=== PATIENT | female | born 1990 | race Caucasian/White ===

== ENCOUNTER 2017-10-19 16:26 | Emergency (ER) | payer BC, OTHER ==
[2017-10-19 16:33] VITALS: BP 115/76; PULSE 82; TEMP 97.9; BMI 31.5
--- NOTE | 2017-10-19 16:46 | PDOC ---
Rapid Medical Evaluation Chief Complaint: Injury Time Seen by Provider: 10/19/17 16:41 Medical Evaluation: Allergies Allergy/AdvReac Type Severity Reaction Status Date / Time No Known Allergies Allergy Verified 10/19/17 16:33 Vital Signs Temp Pulse Resp BP Pulse Ox 97.9 F 82 18 115/76 97 10/19/17 16:29 10/19/17 16:29 10/19/17 16:29 10/19/17 16:29 10/19/17 16:29 10/19/17 16:41 I have performed a brief in-person evaluation of this patient. The patient presents with a chief complaint of: finger injury Pertinent physical exam findings: swollen right ring finger, subungual hematoma I have ordered the following: xray, right ring finger. pt will sign consent The patient will proceed to the ED for further evaluation. Discharge Disposition - Diagnosis Finger injury Qualifiers: Encounter type: initial encounter Laterality: right Qualified Code(s): S69.91XA - Unspecified injury of right wrist, hand and finger(s), initial encounter - Referrals - Patient Instructions - Post Discharge Activity
[2017-10-19] MEDS ORDERED: IBUPROFEN 400 MG TABLET (FP) PO ONE ×2 (17:45→17:47)
--- NOTE | 2017-10-19 18:17 | PDOC ---
History of Present Illness - General Chief Complaint: Injury Stated Complaint: INFECTION Time Seen by Provider: 10/19/17 16:41 History Source: Patient Exam Limitations: No Limitations - History of Present Illness Initial Comments: 10/19/17 18:20 Chief complaint: Right fourth finger injury to nail bed History of present illness:Patient is a 37-year-old female with a history of migraines here today complaining of tingling sensation in the left hand that radiates towards her left elbow worse at night. Patient denies any injury. Patient reports that this is been occurring for 5 days. 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 Patient holds her and her phone at times with her left hand. Patient did denies any decreased strength of her left hand or arm walter any coolness or redness or swelling of her hand or arm. Patient denies that area is painful. Occurred: reports: other (2 days ago ) Severity: reports: severe (rt. ring finger) Pain Location: reports: upper extremity (rt ring finger ) Method of Injury: Yes: direct blow (by a metal door) Modifying Factors: improves with: None Loss of Consciousness: no loss of consciousness Associated Symptoms (Fall): denies symptoms Past History - Past Medical History Allergies/Adverse Reactions: Allergies Allergy/AdvReac Type Severity Reaction Status Date / Time No Known Allergies Allergy Verified 10/19/17 16:33 Home Medications: Ambulatory Orders NK [No Known Home Medication] 08/21/15 COPD: No Other medical history: denies - Surgical History Abdominal Surgery: Yes Cholecystectomy: Yes - Immunization History Immunization Up to Date: No - Suicide/Smoking/Psychosocial Hx Smoking History: Never smoked Hx Alcohol Use: No Drug/Substance Use Hx: No Substance Use Type: None Review of Systems - Review of Systems Able to Perform ROS?: Yes Constitutional: No: Symptoms Reported HEENTM: No: Symptoms Reported Respiratory: No: Symptoms reported Cardiac (ROS): No: Symptoms Reported ABD/GI: No: Symptoms Reported : No: Symptoms Reported Musculoskeletal: No: Symptoms Reported Integumentary: Yes: Other (bleeding under rt. ring fingernail) Neurological: No: Symptoms reported *Physical Exam - Vital Signs Last Vital Signs Temp Pulse Resp BP Pulse Ox 97.9 F 82 18 115/76 97 10/19/17 16:29 10/19/17 16:29 10/19/17 16:29 10/19/17 16:29 10/19/17 16:29 - Physical Exam General Appearance: Yes: Appropriately Dressed Comments:: 10/19/17 18:12 radial pulse 4 + rt Extremity: positive: Normal Capillary Refill, Normal Range of Motion (RT. DIP, PIP AND MCP JT RT. 4TH ), Tender (DISTAL RT. 4TH FINGER ) Integumentary: positive: Erythema (around rt. nailbed slight), Other (rt. nailbed 100% blood noted ring finger ) Neurologic: positive: Normal Response, Respond to painful stimul (rt. 4th finger ). negative: Numbness, Sensory Deficit (rt. ring finger) Procedures - Consent Consent obtained: From Patient - Nail Trephination Method of Drainage: nail cauterized Sterile Dressing Applied: No (bandaid) Progress: 10/19/17 18:15 cleansed area with betadine digital block performed with good effect lidocaine 1 % 5 ml able to express moderate amount of blood ED Treatment Course - Medications Given in the ED: ED Medications Discontinued Medications Generic Name Dose Route Start Last Admin Trade Name Taye PRN Reason Stop Dose Admin Ibuprofen 400 mg 10/19/17 17:45 10/19/17 17:50 Motrin - PO 10/19/17 17:46 400 mg ONCE ONE Administration Medical Decision Making - Medical Decision Making 10/19/17 18:21 Patient is a 37-year-old female with a history of migraines here today complaining of tingling sensation in the left hand that radiates towards her left elbow worse at night. Patient denies any injury. Patient reports that this is been occurring for 5 days. 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 Patient holds her and her phone at times with her left hand. Patient did denies any decreased strength of her left hand or arm walter any coolness or redness or swelling of her hand or arm. Patient denies that area is painful. rt. 4th finger r/o fracture rt. 4th finger subungal hematoma PLAN: urine hcg negative' ibuprofen 400 mg po now digital block rt. 4th finger with lidocaine 1 % 5 ml with good effect Fourth nail bed cauterized moderate amount of blood expressed xray rt. 4tn finger negative for fracture' 10/19/17 18:23 10/19/17 18:25 *DC/Admit/Observation/Transfer Diagnosis at time of Disposition: Finger injury Qualifiers: Encounter type: initial encounter Laterality: right Qualified Code(s): S69.91XA - Unspecified injury of right wrist, hand and finger(s), initial encounter Subungual hematoma of finger of right hand Qualifiers: Encounter type: initial encounter Qualified Code(s): S60.10XA - Contusion of unspecified finger with damage to nail, initial encounter - Discharge Dispostion Disposition: HOME Condition at time of disposition: Stable - Referrals - Patient Instructions Additional Instructions: cleansed fingernail with a bacterial soap and water twice daily cover with Band- Aid when out a house let air out at night return to emergency room if any increased redness around nailbed or any discharge from area take ibuProfen as needed as directed by subcontract manager for pain Follow-up with your primary care provider within the next few days Patient voiced understanding of discharge instructions and all questions were answered And thank you for choosing [facility] emergency room for your medical needs today - Post Discharge Activity
== END 2017-10-19 18:26 | disposition home or self-care (01) ==
LOC: JERFT 16:26
PROC: 0H9QXZZ Drainage of Finger Nail, External Approach (ICD-10-PCS; principal; 2017-10-19)
DX: S60.141A Contusion of right ring finger with damage to nail, initial encounter (principal); W23.0XXA Caught, crushed, jammed, or pinched between moving objects, initial encounter; Y93.89 Activity, other specified; Y92.018 Other place in single-family (private) house as the place of occurrence of the external cause
CPT/HCPCS: 73140-TC-RT; 99281-25

== ENCOUNTER 2018-11-04 17:39 | Emergency (ER) | payer BC, OTHER ==
[2018-11-04 18:45] VITALS: BMI 32.6
--- NOTE | 2018-11-04 20:19 | PDOC ---
History of Present Illness - General Chief Complaint: Pain Stated Complaint: NAUSEA/VOMITING Time Seen by Provider: 11/04/18 20:08 History Source: Patient - History of Present Illness Initial Comments: 11/04/18 22:15 27 year old female with nausea, vomiting and diarrhea x 1 day with chills after eating sushi last night. reports feeling tingling in the fingers and weakness. denies abdominal pain, urinary symptoms, fever, headache, chest pain. 1 Past History - Past Medical History Allergies/Adverse Reactions: Allergies Allergy/AdvReac Type Severity Reaction Status Date / Time No Known Allergies Allergy Verified 10/19/17 16:33 Home Medications: Ambulatory Orders Polyethylene Glycol 3350 [Miralax (For Daily Use) -] 17 gm PO DAILY 11/04/18 Anemia: No Asthma: No Cancer: No Cardiac Disorders: No CVA: No COPD: No CHF: No DVT: No Dementia: No Diabetes: No Dialysis: No GI Disorders: No Disorders: No HTN: No Hypercholesterolemia: No Kidney Stones: No Liver Disease: No Psychiatric Problems: No Seizures: No Thyroid Disease: No Lung CA: No - Surgical History Abdominal Surgery: Yes Appendectomy: No Cardiac Surgery: No Cholecystectomy: Yes Gastric Stapling: No GI Surgery: No Lung Surgery: No Neurologic Surgery: No - Immunization History Immunization Up to Date: No - Suicide/Smoking/Psychosocial Hx Smoking History: Never smoked Hx Alcohol Use: No Drug/Substance Use Hx: No Substance Use Type: None *Physical Exam - Vital Signs Last Vital Signs Temp Pulse Resp BP Pulse Ox 99 F 113 H 20 105/69 97 11/04/18 18:39 11/04/18 18:39 11/04/18 18:39 11/04/18 18:39 11/04/18 18:39 - Physical Exam General Appearance: Yes: Appropriately Dressed Respiratory/Chest: positive: Lungs Clear, Normal Breath Sounds Gastrointestinal/Abdominal: positive: Normal Bowel Sounds, Soft. negative: Tender Musculoskeletal: negative: CVA Tenderness Extremity: positive: Normal Capillary Refill, Normal Inspection, Normal Range of Motion Integumentary: positive: Normal Color, Dry, Warm Neurologic: positive: Fully Oriented, Alert, Normal Mood/Affect Moderate Sedation - Procedure Monitoring Vital Signs: Procedure Monitoring Vital Signs Temperature 99 F 11/04/18 18:39 Pulse Rate 113 H 11/04/18 18:39 Respiratory Rate 20 11/04/18 18:39 Blood Pressure 105/69 11/04/18 18:39 O2 Sat by Pulse Oximetry (%) 97 11/04/18 18:39 ED Treatment Course - LABORATORY CBC & Chemistry Diagram: 11/04/18 20:41 11/04/18 20:41 Medical Decision Making - Medical Decision Making Gastroenteritis P: labs IVF UA nitrite positive trace leuks. no urinary symptoms. likely contaminant will not treat. 11/04/18 23:05 tolerating PO water and crackers 11/08/18 21:39 *DC/Admit/Observation/Transfer Diagnosis at time of Disposition: Gastroenteritis - Discharge Dispostion Disposition: HOME Condition at time of disposition: Improved - Referrals - Patient Instructions Printed Discharge Instructions: Viral Gastroenteritis Additional Instructions: drink plenty of fluids Start a BRAT diet ( bananas, rice, apple and toast) Additional Instructions: * Please call your personal physician to report your Emergency Department visit and to report your progress, if any. * If there is no improvement in symptoms in 2 days call your physician. * Return to the Emergency Department for any worsening symptoms. - Post Discharge Activity Forms/Work/School Notes: Back to Work
[2018-11-04] MEDS ORDERED: ONDANSETRON *ODT* 4 MG TABLET SL ONE (20:20)
[2018-11-04] MEDS ORDERED: ONDANSETRON *ODT* 4 MG TABLET ONE (20:21)
[2018-11-04] MEDS: ONDANSETRON *ODT* 4 MG TABLET SL ONE ×2 (20:30→20:31)
[2018-11-04 21:15] LABS: BASO % 0.3 % (0-2.0); HEMATOCRIT 38.7 % (32.4-45.2); HEMOGLOBIN 13.1 GM/dL (10.7-15.3); LYMPH % 6.1 % (8-40); MCH 22.4 pg (25.7-33.7); MCHC 33.8 g/dl (32.0-36.0); MEAN CELL VOLUME 66.3 fl (80-96); MEAN PLT VOLUME 9.2 fl (7.5-11.1); MONO % 6.7 % (3.8-10.2); NEUT % 86.9 % (42.8-82.8); PLATELET COUNT 257 K/MM3 (134-434); RBC 5.83 M/mm3 (3.60-5.2); RDW 14.3 % (11.6-15.6); WHITE BLOOD COUNT 9.7 K/mm3 (4.0-10.0)
[2018-11-04] MEDS ORDERED: SODIUM CHLORIDE 1,000 ML IV STA (21:26)
[2018-11-04 21:42] LABS: ALBUMIN 4.4 g/dl (3.4-5.0); ALK PHOS 59 U/L (45-117); ANION GAP 12 MMOL/L (8-16); BILIRUBIN,TOTAL 1.1 mg/dL (0.2-1); BLOOD UREA NITROGEN 13 mg/dL (7-18); CALCIUM 8.5 mg/dL (8.5-10.1); CHLORIDE 104 mmol/L (98-107); CO2 20 mmol/L (21-32); CREATININE 0.9 mg/dL (0.55-1.3); GLUCOSE,RANDOM 97 mg/dL (74-106); LIPASE 112 U/L (73-393); POTASSIUM 3.7 mmol/L (3.5-5.1); SGOT/AST 17 U/L (15-37); SGPT/ALT 19 U/L (13-61); SODIUM 136 mmol/L (136-145); TOT PROT 7.7 g/dl (6.4-8.2)
[2018-11-04 23:13] VITALS: BP 112/70; PULSE 80; TEMP 99.1
[2018-11-05 01:38] LABS: PH,URINE 6.5 (5.0-8.0); URINE APPEARANCE Cloudy; URINE BILIRUBIN Negative (<2.0 mg/dL); URINE COLOR Yellow; URINE GLUCOSE (UA) Negative (NEGATIVE); URINE KETONE Negative (NEGATIVE); URINE LEUK ESTERASE TRACE (NEGATIVE); URINE NITRITE Positive (NEGATIVE); URINE PROTEIN 1+ (NEGATIVE); URINE UROBILINOGEN 0.2 mg/dL (0.2-1.0)
[2018-11-05 01:46] LABS: EPI CELLS FEW /HPF (FEW); URINE BACTERIA 3+ /hpf (NONE SEEN); URINE MUCUS 1+
[2018-11-05 02:32] LABS: HCG,QUALITATIVE URINE Negative
--- NOTE | 2018-11-05 11:45 | EKG ---
Test Reason : Blood Pressure : / mmHG Vent. Rate : 082 BPM Atrial Rate : 082 BPM P-R Int : 172 ms QRS Dur : 088 ms QT Int : 392 ms P-R-T Axes : 063 047 059 degrees QTc Int : 457 ms NORMAL SINUS RHYTHM NORMAL ECG NO PREVIOUS ECGS AVAILABLE Confirmed by BILL MICHEL, NIKKIE ([id number]) on 11/05/2018 11:45:10 AM Referred By: Confirmed By:NIKKIE KHAN MD
== END 2018-11-04 23:36 | disposition home or self-care (01) ==
LOC: JER 17:39
PROC: 3E0337Z Introduction of Electrolytic and Water Balance Substance into Peripheral Vein, Percutaneous Approach (ICD-10-PCS; principal; 2018-11-04)
DX: K52.9 Noninfective gastroenteritis and colitis, unspecified (principal)
CPT/HCPCS: 36415; 80053; 81003; 81015; 83690; 84703; 85025; 93005; 93010; 99283-25; J7030; Q0162